=== PATIENT | male | born 1945 | race Caucasian/White ===

== ENCOUNTER 2017-03-23 17:15 | Emergency (ER) | payer MEDICARE, BC ==
[~2017-03-23] VITALS: Ht 177.8 cm; Wt 99.8 kg
[~2017-03-23 17:15] MED LIST: ALTACE10 M1; ASPIRIN325 PO; CARDIZEM; CARDIZEM CD180 MG PO; CATAPRESS3; CIPROFLOXACIN500 M3 PO; CLONIDINE0.1 PO; DENAVIR1.5 GM; FLAGYL500 MG PO; FLOMAX; HYDROCODON-ACE1 EAC2 PO; HYDROCODONE-APA1 TA1 PO; HYZAAR 100-251 EACH PO; KAPVAY0.1 MG; LOPRESSOR 50 MG50 M1 PO; LOPRESSOR100 M1 PO; MIRALAX255 GM PO; NAPROSYN500 MG PO; NEXIUM40 MG; OMEPRAZOLE40 MG PO; PRILOSEC40 MG PO; PROTONIX40 MG PO; TAMSULOSIN HCL0.4 MG PO; TOPROL XL50 MG; ULTRAM 50MG TAB50 MG PO; VIAGRA100 MG; VICODIN ES TAB1 EACH; [UNRECOGNIZED DRUG - OTHER] PO
[2017-03-23 18:18] LABS: INFLUENZA A ANTIGEN None Detected (None Detect); INFLUENZA B ANTIGEN None Detected (None Detect)
[2017-03-23 18:35] LABS: HEMATOCRIT 48.4 % (42.0-52.0); HEMOGLOBIN 16.3 gm/dL (14.0-18.0); MCH 30.9 pg (26.0-34.0); MCHC 33.7 g/dL (28.0-37.0); MCV 91.7 fL (80.0-100.0); MPV 8.4 fl. (7.2-11.1); NUCLEATED RBCS 0 /100WBC; PLATELET COUNT* 276 thou/uL (150-400); RBC 5.28 mil/uL (4.50-6.00); RDW-CV 13.4 % (10.5-14.5); WBC 9.6 thou/uL (4.0-11.0)
[2017-03-23 18:49] LABS: CALCIUM 9.4 mg/dL (8.5-10.1); CREATININE 1.2 mg/dL (0.6-1.3); POTASSIUM 3.3 mmol/L (3.5-5.1)
[2017-03-23 18:53] LABS: ALBUMIN 3.9 g/dL (3.4-5.0); TOTAL BILIRUBIN 0.8 mg/dL (<0.1-1.0); TOTAL PROTEIN 8.2 g/dL (6.4-8.2)
[2017-03-23 19:17] LABS: ABSOLUTE LYMPHOCYTES 0.8 thou/uL (0.8-5.3); ABSOLUTE MONOCYTES 0.2 thou/uL (0.0-1.2); ABSOLUTE NEUTROPHILS 8.6 thou/uL (1.6-8.1)
[2017-03-23 19:18] LABS: PLATELET ESTIMATE ADEQUATE
[2017-03-23 20:05] LABS: URINE BILIRUBIN NEGATIVE (Negative); URINE BLOOD NEGATIVE (Negative); URINE CLARITY CLEAR; URINE COLOR YELLOW; URINE GLUCOSE-RANDOM NEGATIVE (Negative); URINE KETONES NEGATIVE (Negative); URINE LEUKOCYTES-REFLEX NEGATIVE (Negative); URINE NITRITE-REFLEX NEGATIVE (Negative); URINE PROTEIN 1+ (Negative); URINE SPECIFIC GRAVITY 1.025 (1.005-1.030); URINE UROBILINOGEN 0.2 E.U./dl (0.2-1.0)
[2017-03-23] MEDS ORDERED: ZOFRAN4 MG PO (21:03)
[2017-03-23 21:20] VITALS: BP 154/96
== END 2017-03-23 21:23 | disposition home or self-care (01) ==
LOC: M.ERS 17:15
PROVIDERS: Nurse Practitioner Family
DX: R11.2 Nausea with vomiting, unspecified (principal); R19.7 Diarrhea, unspecified; I10 Essential (primary) hypertension; Z85.46 Personal history of malignant neoplasm of prostate; Z88.5 Allergy status to narcotic agent; Z88.1 Allergy status to other antibiotic agents; Z88.8 Allergy status to other drugs, medicaments and biological substances; Z87.891 Personal history of nicotine dependence

== ENCOUNTER 2018-04-22 13:08 | Inpatient (IN) | payer MEDICARE, BC ==
[~2018-04-22] VITALS: Ht 177.8 cm; Wt 99.8 kg
--- NOTE | ~2018-04-22 | CON ---
[address] [address] CONSULTATION Name: ELIDIA ESPINAL Room: [address] IN M.R.#: [id number] Admission: 04/22/18 Attend Phys: Sigrid Verde MD Discharge: Date of : 49 Report #: [id number] THIS REPORT FOR: //name// CC: Fabrizio Shane MD DATE OF SERVICE: 04/22/2018 REFERRING PHYSICIAN: Dr. Sigrid Shane. REASON FOR CONSULTATION: Rectal bleeding. IMPRESSION: 1. 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 2. History of ischemic colitis with previous colonoscopy performed in 2011 with a tendency towards constipation, putting at risk for the same. 3. History of previous prostate cancer for which the patient has undergone radiation therapy for the same. 4. Intermittent acid reflux, but without any worrisome symptoms referable to his upper gastrointestinal tract. RECOMMENDATIONS: 1. At the present time, the patient appears to be hemodynamically stable. We will proceed with bowel preparation tomorrow and endoscopic evaluation of his lower GI tract on Wednesday late morning or early afternoon to confirm ischemic colitis and to evaluate for any problems related to his colon other than the same. 2. He will then need to be educated about eating more fruits and vegetables, drinking more water, less Dr. Portillo and Mr. Campbell and go from there. 3. I discussed plans with the patient as well and he is agreeable to the same. HISTORY OF PRESENT ILLNESS: The patient is a pleasant 73-year-old white male with history of underlying hypertension, BPH and history of remote prostate cancer, which he underwent radiation therapy for the same, who was admitted to hospital with complaints of rather severe lower abdominal pain which began last night, which was then associated with diarrhea and then rectal bleeding. He denied having nausea, vomiting, but did have severe pain. The pain is pretty much gone at this point in time. He has had a tendency towards constipation with a bowel frequency every few days and sometimes has difficulty with going to the bathroom. He is not taking anything on a regular basis to help with the same. He has also complained of some problems related to hemorrhoids and wants to know if this can be taken care of as well. He underwent similar type episode back in 2011, at which time he was hospitalized for a short period [place] [address] CONSULTATION Name: KYLIEELIDIA Dayna Room: [address] IN [facility]#: [id number] Admission: 04/22/18 Attend Phys: Sigrid Verde MD Discharge: Date of : 49 Report #: [id number] underwent endoscopic evaluation by my partner, Dr. Frank, which revealed ischemic colitis at the level of splenic flexure which was documented by endoscopic and pathologic evaluation. The remainder of the colon was essentially unrevealing except for the prep was not all that great through the right colon. He has not had a colonoscopy since that time. He has no known family history of inflammatory bowel disease, colon polyps, colon cancer. Denies associated weight loss. With regards to his upper GI tract, he only takes the omeprazole on a p.r.n. basis. Does take naproxen on a regular basis. He will be taking the omeprazole for a couple of years. He has undergone upper endoscopy in the past, but it has been a number of years ago when he was treated for his hepatitis C infection. He is admitted to hospital for further evaluation and treatment. ALLERGIES: None. MEDICATIONS: At home include omeprazole p.r.n. clonidine, tamsulosin, Hyzaar, diltiazem, naproxen, tramadol, hydrocodone, metoprolol. PAST MEDICAL HISTORY: Significant for hypertension. He has had a history of colitis as I mentioned above with GI bleed, kidney stent, history of prostate cancer which he had radiation treatment for the same. He has had back surgeries, has chronic back pain as well. He has history of hepatitis C infection, which was treated with interferon and ribavirin for a period of a year and was cured of the same. He thinks he might have got it when he was in the service. He denies any risk factors for the same. SOCIAL HISTORY: The patient does not smoke or drink. FAMILY HISTORY: Negative. PHYSICAL EXAMINATION: GENERAL: Pleasant 73-year-old gentleman who is awake and alert. CARDIOPULMONARY EXAMINATION: Revealed a regular rate and rhythm. LUNGS: Clear. ABDOMEN: Soft and nontender. No rebound or guarding noted. LABORATORY DATA: Revealed a white count of 9.3; hemoglobin 14.6; platelet count of 326,000; MCV is 89, RDW 13.3. His sodium is 138, potassium 3.5, chloride 100, bicarbonate is 33, his BUN 16, creatinine 1.1, GFR of 66. Total bilirubin 0.4, alkaline phosphatase is 68, AST 22, ALT 28. His albumin is 3.7. His protime is 10.3 with an INR of 1.0. CT scan was reviewed and revealed thickening of the [place] [address] CONSULTATION Name: ELIDIA ESPINAL Room: [address]#: [id number] Admission: 04/22/18 Attend Phys: Sigrid Verde MD Discharge: Date of : 49 Report #: [id number] descending colon, most suspicious for colitis with some mild pericolonic stranding. His liver, gallbladder, spleen, pancreas, adrenal glands are normal. There is, however, 2.6 x 2.7 mass noted in the upper pole of the right kidney, which is new since the previous scan done in 2008. This is suspicious for renal cell cancer. This is also identified on the abdominal ultrasound as well. DISCUSSION: At the present time, the patient's primary problem is related to his colon. We will proceed with bowel preparation over the next day and proceed with endoscopic evaluation of his lower GI tract on Wednesday, the . I have discussed the plans with the patient as well and he is agreeable to the same. By: [id number] Claire DO /arturo
--- NOTE | ~2018-04-22 | PROC ---
[address] [address] PROCEDURE REPORT Name: ELIDIA ESPINAL Room: [address] IN M.R.#: [id number] Admission: 04/22/18 Attend Phys: Sigrid Verde MD Discharge: 04/24/18 Date of : 49 Report #: [id number] THIS REPORT FOR: //name// For GI report, Please see the Provation report in Perceptive 7. By: 0841Medical Records Staff SEAN /RIA
[~2018-04-22 13:08] MED LIST changes: +ZOFRAN4 MG PO
[2018-04-22 13:19] VITALS: BP 164/101
[2018-04-22 13:59] LABS: ABSOLUTE BASOPHILS 0.1 thou/uL (0.0-0.2); ABSOLUTE EOSINOPHILS 0.3 thou/uL (0.0-0.7); ABSOLUTE LYMPHOCYTES 1.7 thou/uL (0.8-5.3); ABSOLUTE MONOCYTES 0.5 thou/uL (0.0-1.2); ABSOLUTE NEUTROPHILS 6.7 thou/uL (1.6-8.1); EOSINOPHILS 3.1 %; HEMATOCRIT 41.9 % (42.0-52.0); HEMOGLOBIN 14.6 gm/dL (14.0-18.0); LYMPHOCYTES 18.2 %; MCH 30.9 pg (26.0-34.0); MCHC 34.8 g/dL (28.0-37.0); MONOCYTES 5.8 %; NUCLEATED RBCS 0 /100WBC; PLATELET COUNT* 326 thou/uL (150-400); POLYS 71.9 %; RBC 4.71 mil/uL (4.50-6.00); RDW-CV 13.3 % (10.5-14.5); WBC 9.3 thou/uL (4.0-11.0)
[2018-04-22 14:05] LABS: APTT 27.3 Seconds (25.0-31.3); PROTIME 10.3 Seconds (9.20-11.50)
[2018-04-22 14:07] LABS: ANION GAP 5 mmol/L (7-16); BUN 16 mg/dL (7-18); CALCIUM 8.8 mg/dL (8.5-10.1); CHLORIDE 100 mmol/L (98-107); CO2 33 mmol/L (21-32); CREATININE 1.1 mg/dL (0.6-1.3); GLUCOSE 122 mg/dL (70-99); POTASSIUM 3.5 mmol/L (3.5-5.1); SODIUM 138 mmol/L (136-145)
[2018-04-22 14:17] LABS: ALBUMIN 3.7 g/dL (3.4-5.0); ALKALINE PHOSPHATASE 68 U/L (46-116); LIPASE 78 U/L (73-393); NT-PRO BRAIN NAT PEPTIDE 203 pg/mL (<300); SGOT 22 U/L (15-37); SGPT 28 U/L (30-65); TOTAL BILIRUBIN 0.4 mg/dL (<0.1-1.0); TOTAL PROTEIN 7.4 g/dL (6.4-8.2); TROPONIN-I LEVEL <0.06 ng/mL (<0.06)
[2018-04-22 15:03] LABS: URINE BILIRUBIN NEGATIVE (Negative); URINE BLOOD NEGATIVE (Negative); URINE CLARITY CLEAR; URINE COLOR YELLOW; URINE GLUCOSE-RANDOM NEGATIVE (Negative); URINE KETONES NEGATIVE (Negative); URINE LEUKOCYTES-REFLEX NEGATIVE (Negative); URINE NITRITE-REFLEX NEGATIVE (Negative); URINE PROTEIN NEGATIVE (Negative); URINE UROBILINOGEN 0.2 E.U./dl (0.2-1.0)
--- NOTE | 2018-04-22 15:39 | EKG ---
[place] [address] ELECTROCARDIOGRAM REPORT Name: ELIDIA ESPINAL Room: [place] [address] ADM IN .R.#: [id number] Admission: 04/22/18 Attend Phys: Sigrid Verde MD Discharge: Date of : 49 Report #: [id number] THIS REPORT FOR: //name// [facility] ED Test Date: 2018-04-22 Test Time: 13:47:34 Pat Name: ELIDIA ESPINAL Department: Room: [facility] Gender: Electric Blanket Wirer: Cecil LIND : 1945 Requested By: Itzel Delgado Order Number: [id number] MD: Og Díaz Measurements Intervals [place] Rate: 67 P: 24 [place]: 220 QRS: 149 QRSD: 111 T: 36 QT: 418 QTc: 442 Interpretive Statements Sinus rhythm Prolonged [place] interval Left posterior fascicular block Compared to ECG 02/27/2015 09:12:34 First degree AV block now present Left posterior fascicular block now present Electronically Signed On 04-22-2018 15:39:20 [employer] by Og Díaz [email or web address] <ELECTRONICALLY SIGNED> By: Og Díaz MD, [facility] 04/22/18 1539 1347 1347 Og Díaz MD, [facility] /EPI
[2018-04-22 15:50] VITALS: BP 158/98
[2018-04-22 19:00] VITALS: BP 143/61
[2018-04-22 19:30] VITALS: BP 140/79
[2018-04-23 04:34] LABS: ABSOLUTE EOSINOPHILS 0.3 thou/uL (0.0-0.7); ABSOLUTE LYMPHOCYTES 1.8 thou/uL (0.8-5.3); ABSOLUTE MONOCYTES 0.5 thou/uL (0.0-1.2); ABSOLUTE NEUTROPHILS 4.8 thou/uL (1.6-8.1); BASOPHILS 0.5 %; HEMATOCRIT 35.9 % (42.0-52.0); LYMPHOCYTES 23.8 %; MCH 31.3 pg (26.0-34.0); MCHC 34.9 g/dL (28.0-37.0); MCV 89.6 fL (80.0-100.0); MONOCYTES 7.1 %; MPV 8.1 fl. (7.2-11.1); NUCLEATED RBCS 0 /100WBC; PLATELET COUNT* 255 thou/uL (150-400); POLYS 64.6 %; RBC 4.01 mil/uL (4.50-6.00); RDW-CV 13.7 % (10.5-14.5); WBC 7.4 thou/uL (4.0-11.0)
[2018-04-23 04:45] LABS: HEMOGLOBIN 12.5 gm/dL (14.0-18.0)
[2018-04-23 04:48] LABS: CALCIUM 8.6 mg/dL (8.5-10.1); POTASSIUM 3.1 mmol/L (3.5-5.1); TOTAL BILIRUBIN 0.5 mg/dL (<0.1-1.0); TOTAL PROTEIN 6.2 g/dL (6.4-8.2)
[2018-04-23 08:00] VITALS: BP 188/100
[2018-04-23 12:00] VITALS: BP 140/80
[2018-04-23 15:26] LABS: MAGNESIUM 2.1 mg/dL (1.8-2.4); POTASSIUM 3.9 mmol/L (3.5-5.1)
[2018-04-23 17:20] VITALS: BP 133/72
[2018-04-24 03:17] VITALS: BP 119/51
[2018-04-24 04:23] LABS: HEMATOCRIT 36.1 % (42.0-52.0); HEMOGLOBIN 12.4 gm/dL (14.0-18.0); MCHC 34.5 g/dL (28.0-37.0); MCV 89.8 fL (80.0-100.0); MPV 7.9 fl. (7.2-11.1); RBC 4.02 mil/uL (4.50-6.00); RDW-CV 13.6 % (10.5-14.5); WBC 6.5 thou/uL (4.0-11.0)
[2018-04-24 04:37] LABS: CALCIUM 8.7 mg/dL (8.5-10.1); MAGNESIUM 2.1 mg/dL (1.8-2.4); POTASSIUM 3.6 mmol/L (3.5-5.1)
[2018-04-24 08:00] VITALS: BP 174/69
[2018-04-24] MEDS ORDERED: FLAGYL500 M1 PO (08:29)
[2018-04-24] MEDS ORDERED: CIPRO500 MG PO (08:29)
[2018-04-24] MEDS ORDERED: MIRALAX17 GM PO (08:34)
[2018-04-24 10:53] VITALS: BP 174/69
[2018-04-24 14:23] VITALS: BP 174/69
[2018-04-24 16:08] VITALS: BP 174/69
[2018-04-26 15:10] LABS: HCV QUANT BY PCR HCV Not Detected IU/mL (())
== END 2018-04-24 15:25 | disposition home or self-care (01) | DRG 393 ==
LOC: M.ERS 13:08 → M.TBA-ER 15:27 → M.ORTHSURG 15:53
PROVIDERS: Internal Medicine Gastroenterology; Nurse Practitioner; ADMIT Internal Medicine
PROC: 0DBM8ZZ Excision of Descending Colon, Via Natural or Artificial Opening Endoscopic (ICD-10-PCS; principal; 2018-04-24)
PROC: 0DBL8ZX Excision of Transverse Colon, Via Natural or Artificial Opening Endoscopic, Diagnostic (ICD-10-PCS; principal; 2018-04-24)
PROC: 0DBK8ZZ Excision of Ascending Colon, Via Natural or Artificial Opening Endoscopic (ICD-10-PCS; principal; 2018-04-24)
PROC: 0DB68ZX Excision of Stomach, Via Natural or Artificial Opening Endoscopic, Diagnostic (ICD-10-PCS; principal; 2018-04-24)
DX: K55.9 Vascular disorder of intestine, unspecified (principal); K29.71 Gastritis, unspecified, with bleeding; K57.31 Diverticulosis of large intestine without perforation or abscess with bleeding; I10 Essential (primary) hypertension; K21.9 Gastro-esophageal reflux disease without esophagitis; G89.29 Other chronic pain; M54.9 Dorsalgia, unspecified; N28.9 Disorder of kidney and ureter, unspecified; D64.9 Anemia, unspecified; K59.09 Other constipation; E87.5 Hyperkalemia; Z85.46 Personal history of malignant neoplasm of prostate; Z92.3 Personal history of irradiation; Z88.6 Allergy status to analgesic agent; Z88.1 Allergy status to other antibiotic agents; Z88.8 Allergy status to other drugs, medicaments and biological substances; Z87.891 Personal history of nicotine dependence; Z86.19 Personal history of other infectious and parasitic diseases; Z79.899 Other long term (current) drug therapy

== ENCOUNTER → 2018-04-27 | Outpatient (CLI) | payer MEDICARE, BC ==
[~2018-04-27] MED LIST changes: +CIPRO500 MG PO; +FLAGYL500 M1 PO; +MIRALAX17 GM PO
[2018-04-27 08:30] LABS: CREATININE 1.3 mg/dL (0.6-1.3)
== END ==
LOC: M.LAB 07:49 → M.CT 09:30
PROVIDERS: Internal Medicine
DX: K57.30 Diverticulosis of large intestine without perforation or abscess without bleeding (principal); N28.89 Other specified disorders of kidney and ureter; I70.0 Atherosclerosis of aorta; I70.298 Other atherosclerosis of native arteries of extremities, other extremity; K55.1 Chronic vascular disorders of intestine; I70.1 Atherosclerosis of renal artery; K52.9 Noninfective gastroenteritis and colitis, unspecified; M43.26 Fusion of spine, lumbar region

== ENCOUNTER 2018-07-13 21:26 | Observation (INO) | payer MEDICARE, BC ==
[~2018-07-13] VITALS: Ht 177.8 cm; Wt 101.2 kg
[2018-07-13 21:29] VITALS: BP 223/93
[2018-07-13 21:54] LABS: ABSOLUTE BASOPHILS 0.1 thou/uL (0.0-0.2); ABSOLUTE EOSINOPHILS 0.2 thou/uL (0.0-0.7); ABSOLUTE LYMPHOCYTES 2.2 thou/uL (0.8-5.3); ABSOLUTE MONOCYTES 0.4 thou/uL (0.0-1.2); ABSOLUTE NEUTROPHILS 4.1 thou/uL (1.6-8.1); EOSINOPHILS 3.2 %; HEMATOCRIT 40.2 % (42.0-52.0); LYMPHOCYTES 31.5 %; MCH 31.6 pg (26.0-34.0); MCHC 34.7 g/dL (28.0-37.0); MCV 91.2 fL (80.0-100.0); MONOCYTES 6.2 %; MPV 7.9 fl. (7.2-11.1); NUCLEATED RBCS 0 /100WBC; PLATELET COUNT* 282 thou/uL (150-400); POLYS 58.1 %; RBC 4.42 mil/uL (4.50-6.00); RDW-CV 13.8 % (10.5-14.5)
[2018-07-13 21:58] LABS: ANION GAP 9 mmol/L (7-16); BUN 18 mg/dL (7-18); CALCIUM 9.3 mg/dL (8.5-10.1); CHLORIDE 99 mmol/L (98-107); CO2 32 mmol/L (21-32); CREATININE 1.1 mg/dL (0.6-1.3); GLUCOSE 163 mg/dL (70-99); POTASSIUM 3.2 mmol/L (3.5-5.1); SODIUM 140 mmol/L (136-145)
[2018-07-13 22:08] LABS: ALKALINE PHOSPHATASE 96 U/L (46-116); SGOT 20 U/L (15-37); SGPT 33 U/L (30-65); TOTAL BILIRUBIN 0.4 mg/dL (<0.1-1.0); TROPONIN-I LEVEL <0.06 ng/mL (<0.06)
[2018-07-14] VITALS (38 sets, daily range): BP systolic 100–175; BP diastolic 52–89
--- NOTE | 2018-07-14 06:28 | NUR ---
PATIENT ARRIVED ON UNIT AT 0005 FROM ED. ASSESSMENTS CHARTED. PATIENT REPORTS TAKING 5X DOSAGE OF CLONIPINE AT HOME BY ACCIDENT. ADMITTED FOR ACCIDENTAL OD. PATIENT SLEPT FOR MOST OF THE SHIFT. POISON CONTROL HAS BEEN IN CONTACT WITH ICU AND DOES NOT SEE ANY NEED FOR FURTHER MONITORING ON THEIR END. PATIENT'S HEART RATE HAS STAYED BRADYCARDIC DURING SHIFT AND BLOOD PRESSURE HAS STEADILY INCREASED OVER SHIFT. STILL AWAITING LABS TO BE DRAWN FOR RECHECK OF PATIENT'S POTASSIUM LEVEL WHICH WAS 3.2 ON ADMISSION TO ED. WILL CONTINUE TO MONITOR.
[2018-07-14 07:54] LABS: CALCIUM 8.8 mg/dL (8.5-10.1); MAGNESIUM 2.1 mg/dL (1.8-2.4); POTASSIUM 4.7 mmol/L (3.5-5.1)
--- NOTE | 2018-07-14 09:53 | NUR ---
PATIENT REMAINS A&O X 4, PLEASANT AND COOPERATIVE WITH CARES. DENIES PAIN OTHER THAN IN HIS BACK BUT STATES "THAT'S NORMAL FOR ME". PATIENT HEART RATE A LITTLE LOW THIS AM WHILE RESTING WITH RATES IN THE 50'S BUT WHEN PATIENT IS AWAKE HEART RATE 58-65. BLOOD PRESSURE STABLE. POISON CONTROL CALLED AND CHECKED ON PATIENT, REVIEWED PATIENTS VITAL SIGNS AND LABS AND THEY STATED THAT THEY WERE DISCHARGING HIM. PATIENT TO BE DISCHARGING FROM HOSPITAL WELL, IF EKG IS OKAY. PATIENT UP IN ROOM WITHOUT DIFFICULTY. NO OTHER CONCERNS AT THIS TIME. WILL CONTINUE TO MONITOR AND CARE PER PLAN OF CARE.
--- NOTE | 2018-07-14 14:46 | EKG ---
[place] [address] ELECTROCARDIOGRAM REPORT Name: ELIDIA ESPINAL MEENAKSHI Room: [address] M.R.#: [id number] Admission: 07/13/18 Attend Phys: Ezekiel Raphael MD Discharge: 07/14/18 Date of : 49 Report #: [id number] THIS REPORT FOR: //name// [facility] ED Test Date: 2018-07-13 Test Time: 21:36:01 Pat Name: ELIDIA ESPINAL Department: Room: [facility] Gender: M Sample Dye Mixer: Cceil SWANN : 1945 Requested By: Tammy Martin Order Number: [id number] MD: Ashwin Mendenhall Measurements Intervals [place] Rate: 76 P: 65 ND: 219 QRS: 97 QRSD: 112 T: 13 QT: 406 QTc: 457 Interpretive Statements Sinus rhythm Borderline prolonged [place] interval Incomplete right bundle-branch block Compared to ECG 04/22/2018 13:47:34 Incomplete right bundle-branch block now present Electronically Signed On 07-14-2018 14:46:08 CDT by Ashwin Mendenhall [email or web address] <ELECTRONICALLY SIGNED> By: Ashwin Mendenhall MD, FACC 07/14/18 1446 35 35 Ashwin Mendenhall MD, [facility] /EPI
--- NOTE | 2018-07-14 14:51 | EKG ---
[place] [address] ELECTROCARDIOGRAM REPORT Name: ELIIDA ESPINAL Room: [address] M.R.#: [id number] Admission: 07/13/18 Attend Phys: Ezekiel Raphael MD Discharge: 07/14/18 Date of : 49 Report #: [id number] THIS REPORT FOR: //name// [facility] Test Date: 2018-07-14 Test Time: 10:17:56 Pat Name: ELIDIA ESPINAL Department: Room: [address] Gender: M Tapper Bit: [facility] : 1945 Requested By: Ezekiel Raphael Order Number: [id number] Lindsey MD: Ashwin Mendenhall Measurements Intervals [place] Rate: 58 P: -13 [place]: 193 QRS: 130 QRSD: 124 T: 52 QT: 434 QTc: 427 Interpretive Statements Sinus rhythm Nonspecific intraventricular conduction delay Compared to ECG 04/22/2018 13:47:34 Intraventricular conduction delay now present First degree AV block no longer present Left posterior fascicular block no longer present Electronically Signed On 07-14-2018 14:50:50 CDT by Ashwin Mendenhall [email or web address] <ELECTRONICALLY SIGNED> By: Ashwin Mendenhall MD, [facility] 07/14/18 1450 1017 1017 Ashwin Mendenhall MD, [facility] /EPI
== END 2018-07-14 10:50 | disposition home or self-care (01) ==
LOC: M.ERS 21:26 → M.ICU 22:44 → M.TBA-ER 22:44 → M.ICU 23:27
PROVIDERS: Emergency Medicine; ADMIT Internal Medicine
DX: T46.5X1A Poisoning by other antihypertensive drugs, accidental (unintentional), initial encounter (principal); R00.1 Bradycardia, unspecified; I10 Essential (primary) hypertension; M19.90 Unspecified osteoarthritis, unspecified site; Z88.5 Allergy status to narcotic agent; Z88.1 Allergy status to other antibiotic agents; Z88.8 Allergy status to other drugs, medicaments and biological substances; Z98.890 Other specified postprocedural states; Z87.891 Personal history of nicotine dependence; Z85.46 Personal history of malignant neoplasm of prostate

== ENCOUNTER → 2019-01-03 | Outpatient (CLI) | payer MEDICARE, BC | LOC: M.LAB 06:27 → M.MRI 07:30 | DX: M54.5 Low back pain (principal) ==

== ENCOUNTER 2020-11-18 07:05 | Inpatient (IN) | payer MEDICARE, BC ==
[~2020-11-18] VITALS: Ht 177.8 cm; Wt 99.8 kg
--- NOTE | ~2020-11-18 | PROC ---
[address] [address] PROCEDURE REPORT Name: ELIDIA ESPINAL MEENAKSHI Room: [address] IN M.R.#: [id number] Admission: 11/18/20 Attend Phys: Sigrid Verde MD Discharge: 11/19/20 Date of : 49 Report #: [id number] THIS REPORT FOR: cc: Paul Vogt MD, Meng MD [facility],Medical Records Staff ~ For GI report, please see the Provation report in Perceptive 7 content. By: 0702Medical Records Staff [place] /RIA
[~2020-11-18 07:05] MED LIST changes: +CARDIZEM CD 18180 M3 PO; -CARDIZEM CD180 MG PO; -HYDROCODONE-APA1 TA1 PO; +NORCO7.5 PO; -PRILOSEC40 MG PO
[2020-11-18 07:17] VITALS: BP 139/92
[2020-11-18] MEDS ORDERED: CELEBREX 200 M200 M1 PO (07:24)
[2020-11-18] MEDS ORDERED: CATAPRES0.2 MG PO (07:25)
[2020-11-18 08:00] LABS: ABSOLUTE EOSINOPHILS 0.4 thou/uL (0.0-0.7); ABSOLUTE LYMPHOCYTES 1.2 thou/uL (0.8-5.3); ABSOLUTE MONOCYTES 0.6 thou/uL (0.0-1.2); ABSOLUTE NEUTROPHILS 5.8 thou/uL (1.6-8.1); BASOPHILS 0.3 %; EOSINOPHILS 4.8 %; HEMOGLOBIN 14.7 gm/dL (14.0-18.0); LYMPHOCYTES 15.2 %; MCH 31.2 pg (26.0-34.0); MCHC 34.3 g/dL (28.0-37.0); MCV 91.1 fL (80.0-100.0); MPV 8.2 fl. (7.2-11.1); NUCLEATED RBCS 0 /100WBC; PLATELET COUNT* 243 thou/uL (150-400); POLYS 72.7 %; RBC 4.72 mil/uL (4.50-6.00); RDW-CV 13.2 % (10.5-14.5)
[2020-11-18 08:07] LABS: POTASSIUM 3.8 mmol/L (3.5-5.1)
[2020-11-18 08:12] LABS: ALBUMIN 4.1 g/dL (3.4-5.0); TOTAL BILIRUBIN 0.5 mg/dL (<0.1-1.0); TOTAL PROTEIN 7.5 g/dL (6.4-8.2)
--- NOTE | 2020-11-18 12:51 | EKG ---
[place] [address] ELECTROCARDIOGRAM REPORT Name: ELIDIA ESPINAL Room: [place] [address] ADM IN .R.#: [id number] Admission: 11/18/20 Attend Phys: Sigrid Verde, Discharge: Date of : 49 Date of Service: 11/18/20811 Report #: [id number] THIS REPORT FOR: //name// [facility] ED Test Date: 2020-11-18 Test Time: 08:12:27 Pat Name: ELIDIA ESPINAL Department: Room: [facility] Gender: M Clinical Practice Consultant: LORIN : 1945 Requested By: Easton Gao Order Number: [id number] MD: Ashwin Mendenhall Measurements Intervals [place] Rate: 72 P: 72 [place]: 246 QRS: 120 QRSD: 117 T: 7 QT: 396 QTc: 434 Interpretive Statements Sinus rhythm with premature and consecutive PACs prolonged [place] interval IRBBB and LPFB Compared to ECG 07/14/2018 10:17:56 First degree AV block now present Left posterior fascicular block now present Incomplete right bundle-branch block now present Electronically Signed On 11-18-2020 12:51:16 CDT by Ashwin Mendenhall [email or web address] <ELECTRONICALLY SIGNED> By: Ashwin Mendenhall MD, FACC 11/18/20 1251 1 1 Ashwin Mendenhall MD, [facility] /EPI
[2020-11-18 13:01] VITALS: BP 122/72
[2020-11-18 14:05] VITALS: BP 151/79
--- NOTE | 2020-11-18 17:29 | 2DMMODE ---
[place] [address] 2 D/M-MODE ECHOCARDIOGRAM Name: KYLIEELIDIA ARRIETA Room: [place] [address] ADM IN [facility]#: [id number] Admission: 11/18/20 Attend Phys: Sigrid Verde, Discharge: Date of : 49 Date of Service: 11/18/20 1728 Report #: [id number] THIS REPORT FOR: cc: Paul Vogt MD, Meng MD Holkins, John M. MD [facility] ~ APPROVED REPORT Study performed: 11/18/2020 16:25:32 EXAM: Comprehensive 2D, Doppler, and color-flow Echocardiogram Patient Location: In-Patient Room #: [facility] Status: routine BSA: 2.17 HR: 69 bpm BP: 122/72 mmHg Rhythm: Tachycardia Other Information Study Quality: Good Indications Tachycardia 2D Dimensions IVSd: 11.58 (7-11mm) LVOT Diam: 20.30 (18-24mm) LVDd: 47.52 mm PWd: 9.60 (7-11mm) Ascending Ao: 36.17 (22-36mm) Aortic Root: 39.18 mm Volumes Left Atrial Volume (Systole) LA ESV Index: 29.30 mL/m2 Aortic Valve AoV Peak Hi.: 1.61 m/s AO Peak Gr.: 10.41 mmHg LVOT Max P.38 mmHg AO Mean Gr.: 6.28 mmHg LVOT Mean P.69 mmHg LVOT Max V: 0.92 m/s AO V2 VTI: 35.68 cm LVOT Mean V: 0.60 m/s ROMELIA (VTI): 2.24 cm2 LVOT V1 VTI: 24.71 cm AI Mcpherson: 3.96 m/s2 AI PHT: 318.92 [place] [address] 2 D/M-MODE ECHOCARDIOGRAM Name: ELIDIA ESPINAL Room: [address] IN .R.#: [id number] Admission: 11/18/20 Attend Phys: Sigrid Verde, Discharge: Date of : 49 Date of Service: 11/18/20 1728 Report #: [id number] Mitral Valve E/A Ratio: 1.16 MV Decel. Time: 165.91 ms MV E Max Hi.: 1.15 m/s MV PHT: 48.11 ms MVA (PHT): 4.57 cm2 TDI E/Lateral E': 14.38 E/Medial E': 11.50 Medial E' Hi.: 0.10 m/s Lateral E' Hi.: 0.08 m/s Pulmonary Valve PV Peak Hi.: 0.86 m/s PV Peak Gr.: 2.97 mmHg Tricuspid Valve RAP Estimate: 5.00 mmHg TR Peak Gr.: 28.72 mmHg RVSP: 33.00 mmHg PA Pressure: 33.00 mmHg Left Ventricle The left ventricle is normal size. There is normal LV segmental wall motion. There is normal left ventricular wall thickness. Left ventricular systolic function is normal. The left ventricular ejection fraction is within the normal range. LVEF is 60-65%. The left ventricular diastolic function is normal. Right Ventricle The right ventricle is normal size. The right ventricular systolic function is normal. Atria The left atrium size is normal. The right atrium size is normal. Aortic Valve Mild aortic valve sclerosis. Mild aortic regurgitation. There is no aortic valvular stenosis. Mitral Valve The mitral valve is normal in structure. Mild mitral regurgitation. No evidence of mitral valve stenosis. Tricuspid Valve The tricuspid valve is normal in structure[place] [address] 2 D/M-MODE ECHOCARDIOGRAM Name: ELIDIA ESPINAL Room: [address] IN [facility]#: [id number] Admission: 11/18/20 Attend Phys: Sigrid Verde, Discharge: Date of : 49 Date of Service: 11/18/20 1728 Report #: [id number] regurgitation. Pulmonic Valve The pulmonary valve is normal in structure. There is no pulmonic valvular regurgitation. Great Vessels The aortic root is normal in size. IVC is normal in size and collapses >50% with inspiration. Pericardium There is no pericardial effusion. <Conclusion> The left ventricle is normal size. There is normal left ventricular wall thickness. Left ventricular systolic function is normal. The left ventricular ejection fraction is within the normal range. LVEF is 60-65%. The right ventricle is normal size. The left atrium size is normal. Mild aortic regurgitation. There is no aortic valvular stenosis. The mitral valve is normal in structure. Mild mitral regurgitation. The tricuspid valve is normal in structure. Mild tricuspid regurgitation. IVC is normal in size and collapses >50% with inspiration. There is no pericardial effusion. There is normal LV segmental wall motion. <ELECTRONICALLY SIGNED> By: Og Díaz MD, FACC 11/18/201727 27 27 Og Díaz MD, FACC /INF
[2020-11-18 18:11] VITALS: BP 136/72
[2020-11-18 22:20] VITALS: BP 175/94
[2020-11-19 00:02] VITALS: BP 114/70
[2020-11-19 04:16] VITALS: BP 123/51
[2020-11-19 04:27] LABS: HEMATOCRIT 39.5 % (42.0-52.0); HEMOGLOBIN 13.5 gm/dL (14.0-18.0); MCH 31.2 pg (26.0-34.0); MCHC 34.3 g/dL (28.0-37.0); MCV 91.1 fL (80.0-100.0); MPV 8.2 fl. (7.2-11.1); RBC 4.34 mil/uL (4.50-6.00); RDW-CV 13.3 % (10.5-14.5); WBC 6.6 thou/uL (4.0-11.0)
[2020-11-19 04:45] LABS: ALBUMIN 3.3 g/dL (3.4-5.0); CALCIUM 8.5 mg/dL (8.5-10.1); CREATININE 1.4 mg/dL (0.6-1.3); MAGNESIUM 1.9 mg/dL (1.8-2.4); POTASSIUM 3.8 mmol/L (3.5-5.1); TOTAL BILIRUBIN 0.7 mg/dL (<0.1-1.0); TOTAL PROTEIN 6.4 g/dL (6.4-8.2)
[2020-11-19 09:00] VITALS: BP 154/86
[2020-11-19 12:00] VITALS: BP 128/71
[2020-11-19] MEDS ORDERED: FLAGYL500 M1 PO (19:16)
[2020-11-19] MEDS ORDERED: CIPROFLOXACIN500 M1 PO (19:16)
[2020-11-19 19:32] VITALS: BP 128/71
--- NOTE | 2020-11-22 21:06 | PATH ---
[address] [address] PATHOLOGY RPT PROCEDURE Name: ELIDIA ESPINAL Room: [address] IN M.R.#: [id number] Admission: 11/18/20 Date of : 49 Discharge: 11/19/20 Report #: [id number] Path Case #: [id number] [facility] Accession Number: [id number] . 01 Material submitted: . PART A: colon - POLYP ASCENDING COLON- HOT SNARE. Modifiers: ascending PART B: colon - ULCERATION AND EDEMA- DESCENDING COLON/SUSPICIOUS COLONICISCHEMIA. Modifiers: descending . 01 Clinical history: . COLONOSCOPY BLOOD DIARRHEA, RENAL FAILURE, IRREGULAR HEART BEAT . 02 Diagnosis: A. Large bowel "ascending colon polyp hot snare": - Tubular adenoma; negative for high-grade dysplasia and malignancy. . B. Large bowel "descending colon", biopsy: - Large bowel mucosa with features of ischemic colitis. - Negative for dysplasia and malignancy. . (ALEX:shae; 11/22/2020) MBR 11/22/2020 1603 Local . 02 Electronically signed: . Tiffany Phelps MD, Pathologist NPI- [id number] . 01 Gross description: . A. The specimen is received in formalin, labeled "Elidia Espinal, polyp ascending colon". Received is a segment of light koo tissue measuring 0.7 cm in maximum dimensions. The surgical margin is inked and the segment is bisected. The specimen is submitted entirely in cassette A1. . B. The specimen is received in formalin, labeled "Elidia Espinal, ulceration/edema descending colon". Received are multiple segments of pale koo tissue ranging in size from 0.2-0.4 cm in maximum dimensions. The specimen is submitted entirely in cassette B1. (CAA; 11/21/2020) QA/QA 11/21/2020 1529 Local . 02 Pathologist provided ICD-10: D12.2, Z12.11, R19.7 . 02 CPT . 446725, 506776 Specimen Comment: A courtesy copy of this report has been sent to [phone], [place] [address] PATHOLOGY RPT PROCEDURE Name: ELIDIA ESPINAL Room: [address] IN M.R.#: [id number] Admission: 11/18/20 Date of : 49 Discharge: 11/19/20 Report #: [id number] Path Case #: [id number] Specimen Comment: [phone], Specimen Comment: Report sent to , DR POWELL / DR AGUIRRE Performed at: 01 [facility] [address] [id number] MD Marco Beebe MD Phone: [phone] Performed at: [address] [id number] MD Harjinder Hernandez MD Phone: [phone]
== END 2020-11-19 19:40 | disposition home or self-care (01) | DRG 393 ==
LOC: M.ERS 07:05 → M.2W 09:43 → M.TBA-ER 09:43 → M.2W 13:13
PROVIDERS: Emergency Medicine Emergency Medical Services; ADMIT Internal Medicine; ATTEND Internal Medicine
PROC: 0DBK8ZZ Excision of Ascending Colon, Via Natural or Artificial Opening Endoscopic (ICD-10-PCS; principal; 2020-11-19)
PROC: 0D5P8ZZ Destruction of Rectum, Via Natural or Artificial Opening Endoscopic (ICD-10-PCS; principal; 2020-11-19)
PROC: 0DBM8ZX Excision of Descending Colon, Via Natural or Artificial Opening Endoscopic, Diagnostic (ICD-10-PCS; principal; 2020-11-19)
DX: K55.039 Acute (reversible) ischemia of large intestine, extent unspecified (principal); N17.0 Acute kidney failure with tubular necrosis; I49.9 Cardiac arrhythmia, unspecified; Z20.822 Contact with and (suspected) exposure to COVID-19; I49.1 Atrial premature depolarization; N18.9 Chronic kidney disease, unspecified; K64.8 Other hemorrhoids; D12.2 Benign neoplasm of ascending colon; I12.9 Hypertensive chronic kidney disease with stage 1 through stage 4 chronic kidney disease, or unspecified chronic kidney disease; Z87.891 Personal history of nicotine dependence; Z88.6 Allergy status to analgesic agent; Z88.8 Allergy status to other drugs, medicaments and biological substances; Z85.46 Personal history of malignant neoplasm of prostate; Z90.5 Acquired absence of kidney; Z85.53 Personal history of malignant neoplasm of renal pelvis

== ENCOUNTER 2021-01-25 16:43 | Emergency (ER) | payer MEDICARE, BC ==
[~2021-01-25] VITALS: Ht 177.8 cm; Wt 99.8 kg
[~2021-01-25 16:43] MED LIST changes: +CATAPRES0.2 MG PO; +CELEBREX 200 M200 M1 PO; +CIPROFLOXACIN500 M1 PO
[2021-01-25] MEDS ORDERED: CELEBREX 200 M200 M1 PO (17:17)
[2021-01-25] MEDS ORDERED: CIPROFLOXIN HC2.5 M1 OPHTHALMIC (17:33)
[2021-01-25 17:42] VITALS: BP 164/76
== END 2021-01-25 17:42 | disposition home or self-care (01) ==
LOC: M.ERS 16:43
DX: H47.091 Other disorders of optic nerve, not elsewhere classified, right eye (principal); I10 Essential (primary) hypertension; Z79.899 Other long term (current) drug therapy; Z88.5 Allergy status to narcotic agent; Z88.1 Allergy status to other antibiotic agents; Z87.891 Personal history of nicotine dependence